=== PATIENT | male | born 1975 | race Caucasian/White ===

== ENCOUNTER → 2017-12-06 | Day surgery (SDC) | payer OTHER ==
[~2017-12-06] MED LIST: PROPOFOL 40 ML IV
[2017-12-06] MEDS: IV RINGERS,LACTATED 1000ML 1,000 ML IV ×2 (09:15)
== END | disposition home or self-care (01) ==
LOC: SURG 08:48
DX: K22.2 Esophageal obstruction (principal); K21.0 Gastro-esophageal reflux disease with esophagitis; I10 Essential (primary) hypertension; F17.200 Nicotine dependence, unspecified, uncomplicated; Z72.0 Tobacco use
CPT/HCPCS: 43239; 88305; J2704